=== PATIENT | female | born 1960 | race African-American/Black ===

== ENCOUNTER 2017-11-17 20:00 | Emergency (ER) | payer SELFPAY ==
[2017-11-17] MEDS ORDERED: predniSONE 20 MG TAB ONE (21:22)
[2017-11-17] MEDS ORDERED: predniSONE 10 MG TAB ONE (21:22)
[2017-11-17] MEDS ORDERED: FAMOTIDINE 20 MG TAB ONE (21:23)
--- NOTE | 2017-11-17 21:57 | ER ---
Nurse's Notes [facility] Name: Christel Cai Age: 56 yrs Sex: Female : 1960 Arrival Date: 11/17/2017 Time: 20:26 Bed 26 Private MD: Diagnosis: Unspecified adverse effect of drug or medicament Presentation: 11/17 20:26 Presenting complaint: EMS states: patient called complaining she was having a reaction kr2 to her new anxiety medication. Complains that her lip was swelling and mouth became very dry. She became very anxious and attempted to get out of the ambulance while it was in motion. She said she is afraid to be alone. Transition of care: patient was not received from another setting of care. Onset of symptoms was November 17, 2017. Risk Assessment: Do you want to hurt yourself or someone else? Patient reports no desire to harm self or others. Initial Sepsis Screen: Does the patient meet any 2 criteria? No. Patient's initial sepsis screen is negative. Does the patient have a suspected source of infection? No. Patient's initial sepsis screen is negative. Care prior to arrival: None. 20:26 Method Of Arrival: EMS: [facility] kr2 20:26 Acuity: TANNER 3 kr2 20:31 Presenting complaint: Patient states: she has severe anxiety and does not want to be kr2 alone. She denies having any thoughts of harming herself or others. Triage Assessment: 20:32 General: Appears in no apparent distress. comfortable, well developed, well nourished, kr2 Behavior is anxious, restless. Pain: Denies pain. Historical: - Allergies: 20:35 No Known Allergies; kr2 - Home Meds: 20:35 Hydroxyzine Oral [Active]; kr2 - Immunization history:: Adult Immunizations unknown. - Social history:: Smoking status: Patient/guardian denies using tobacco. - Ebola Screening: : No symptoms or risks identified at this time. Screenin:32 Abuse screen: Denies threats or abuse. Denies injuries from another. Nutritional kr2 screening: No deficits noted. Tuberculosis screening: No symptoms or risk factors identified. Fall Risk No fall in past 12 months (0 pts). Assessment: 21:15 General: Appears in no apparent distress. uncomfortable, Behavior is anxious, restless. aj1 Pain: Denies pain. Neuro: Level of Consciousness is awake, alert, obeys commands, Oriented to person, place, time, situation. Cardiovascular: Patient's skin is warm and dry. Respiratory: Airway is patent Breath sounds are clear bilaterally. GI: No signs and/or symptoms were reported involving the gastrointestinal system. : No signs and/or symptoms were reported regarding the genitourinary system. EENT: Reports dry mouth. Derm: No signs and/or symptoms reported regarding the dermatologic system. Skin is normal, Denies itching, rash. Musculoskeletal: No signs and/or symptoms reported regarding the musculoskeletal system. Circulation, motion, and sensation intact. 22:05 Reassessment: Patient appears in no apparent distress at this time. Patient and/or kr2 family updated on plan of care and expected duration. Pain level reassessed. Patient is alert, oriented x 3, equal unlabored respirations, skin warm/dry/pink. Psych: 20:35 Interventions: Urine collected and sent for urine drug test. Suicide Risk Assessment: kr2 Sad Person Scale: Sex of patient: Female: Score 0 points. Age of patient: Score 0 point if patient falls outside of specified age parameters. Depression: Score 1 point if signs of depression are present. Previous Attempt: Score 0 point if patient has not previously attempted suicide. Substance Abuse: Score 0 point if patient does not abuse alcohol or drugs. Rational Thinking: Score 1 point if patient is lacking rational thinking. Social Support: Score 1 point if social support is lacking and/or unavailable. Organized Plan: Score 0 if patient did not have an organized plan in place. Relationship: Score 1 point if patient is , , , or for a single male Chronic Sickness: Score 0 point if patient does not have a chronic illness, debilitating, or severe disorder. Safety Checks: Pt denies substance abuse. Vital Signs: 20:37 BP 179 / 96; Pulse 88; Resp 18; Temp 99.4; Pulse Ox 99% on R/A; Pain 0/10; kr2 22:08 BP 153 / 88; Pulse 84; Resp 17; Pulse Ox 99% on R/A; kr2 ED Course: 20:26 Patient arrived in ED. kr2 20:31 Triage completed. kr2 20:33 Arm band placed on left wrist. kr2 20:37 Patient has correct armband on for positive identification. Bed in low position. Call kr2 light in reach. Side rails up X2. Pulse ox on. NIBP on. Sitter at bedside. Door closed. Warm blanket given. Head of bed elevated. 20:40 Oleg Velazco PA is PHCP. cp 20:40 Pool Nolasco MD is Attending Physician. cp 21:11 Edwige Roy, RN is Primary Nurse. aj1 21:15 No provider procedures requiring assistance completed. aj1 22:08 Patient did not have IV access during this emergency room visit. kr2 Administered Medications: 21:30 Drug: predniSONE 40 mg Route: PO; kr2 22:10 Follow up: Response: No adverse reaction kr2 21:30 Drug: predniSONE 10 mg Route: PO; kr2 22:09 Follow up: Response: No adverse reaction kr2 21:30 Drug: Pepcid 20 mg Route: PO; kr2 22:09 Follow up: Response: No adverse reaction kr2 21:30 Not Given (patient does not have a ride): Benadryl 50 mg PO once; if patient has ride kr2 Outcome: 21:56 Discharge ordered by . cp 22:05 Discharged to Unknown patient discharged to lobby to wait for a ride kr2 22:05 Condition: good 22:05 Discharge instructions given to patient, Instructed on discharge instructions, follow up and referral plans. medication usage, Demonstrated understanding of instructions, follow-up care, medications, Prescriptions given X 3. 22:10 Patient left the ED. kr2 Signatures: Edwige Roy, RN RN aj1 Oleg Velazco PA PA cp Valeria Bill RN RN kr2 Corrections: (The following items were deleted from the chart) :22 21:15 Respiratory: Airway is patent aj1 aj1 21:15 Derm: No signs and/or symptoms reported regarding the dermatologic system. Skin aj1 is normal, aj1
--- NOTE | 2017-11-17 21:57 | EDPHYS ---
Physician Documentation [facility] Name: Christel Cai Age: 56 yrs Sex: Female : 1960 Arrival Date: 11/17/2017 Time: 20:26 Bed 26 Private MD: ED Physician Pool Nolasco HPI: 11/17 21:10 This 56 yrs old Black Female presents to ER via EMS with complaints of lip swelling. cp 21:10 The patient presents with swelling of the lips. cp 21:10 Onset: The symptoms/episode began/occurred today. Associated signs and symptoms: cp Pertinent negatives: abdominal pain, chest pain, dysphagia, fever, hives, nausea, rash, shortness of breath, vomiting. Possible causes: hydroxyzine. At home the patient or guardian has treated the symptoms with nothing. Severity of symptoms: in the emergency department the symptoms are unchanged. Historical: - Allergies: 20:35 No Known Allergies; kr2 - Home Meds: 20:35 Hydroxyzine Oral [Active]; kr2 - Immunization history:: Adult Immunizations unknown. - Social history:: Smoking status: Patient/guardian denies using tobacco. - Ebola Screening: : No symptoms or risks identified at this time. ROS: 21:15 Constitutional: Negative for body aches, chills, fever, poor PO intake. cp 21:15 Eyes: Negative for injury, pain, redness, and discharge. cp 21:15 ENT: Positive for swelling upper lip, Negative for drainage from ear(s), ear pain, difficulty swallowing, difficulty handling secretions. 21:15 Neck: Negative for pain with movement, pain at rest, stiffness, swollen nodes, tenderness. 21:15 Cardiovascular: Negative for chest pain, edema, palpitations. 21:15 Respiratory: Negative for cough, shortness of breath, wheezing. 21:15 Abdomen/GI: Negative for abdominal pain, nausea, vomiting, and diarrhea. 21:15 Skin: Negative for cellulitis, diaphoresis, rash. 21:15 Neuro: Negative for altered mental status, dizziness, headache. 21:15 All other systems are negative. Exam: 21:20 Constitutional: The patient appears in no acute distress, alert, awake, comfortable, cp non-diaphoretic, non-toxic, well developed, well nourished. 21:20 Head/Face: Normocephalic, atraumatic. cp 21:20 Eyes: Periorbital structures: appear normal, Pupils: equal, round, and reactive to light and accomodation, Extraocular movements: intact throughout, Conjunctiva: normal, no exudate, no injection, Sclera: no appreciated abnormality, Lids and lashes: appear normal, bilaterally. 21:20 ENT: External ear(s): are unremarkable, Ear canal(s): are normal, clear, TM's: bulging, is not appreciated, bilaterally, dullness, bilaterally, erythema, is not appreciated, bilaterally, Nose: is normal, Mouth: is normal, Posterior pharynx: is normal, airway is patent, no erythema, no exudate, Voice: is normal. 21:20 Neck: C-spine: vertebral tenderness, is not appreciated, crepitus, is not appreciated, ROM/movement: pain, is not appreciated, limited range of motion, is not appreciated, nuchal rigidity, is not appreciated. 21:20 Chest/axilla: Inspection: normal, Palpation: is normal, no crepitus, no tenderness. 21:20 Cardiovascular: Rate: normal, Rhythm: regular, Pulses: Pulses are 2+ in right radial artery and left radial artery. Heart sounds: murmur, not appreciated, Edema: is not appreciated, JVD: is not appreciated. 21:20 Respiratory: the patient does not display signs of respiratory distress, Respirations: normal, no use of accessory muscles, no retractions, no splinting, no tachypnea, labored breathing, is not present, Breath sounds: are clear throughout, no decreased breath sounds, no stridor, no wheezing. 21:20 Abdomen/GI: Inspection: abdomen appears normal, Bowel sounds: active, all quadrants, Palpation: abdomen is soft and non-tender, in all quadrants, rebound tenderness, is not appreciated, voluntary guarding, is not appreciated, involuntary guarding, is not appreciated. 21:20 Back: pain, is absent, ROM is normal, vertebral tenderness, is not appreciated. 21:20 Musculoskeletal/extremity: Exam is negative for bony tenderness, decreased range of motion, deformity, edema, injury. 21:20 Skin: cellulitis, is not appreciated, no rash present. 21:20 Neuro: Orientation: to person, place \T\ time. Mentation: lucid, able to follow commands, Cerebellar function: is grossly normal, Motor: moves all fours, strength is normal, Sensation: no obvious gross deficits, Gait: is steady. Vital Signs: 20:37 BP 179 / 96; Pulse 88; Resp 18; Temp 99.4; Pulse Ox 99% on R/A; Pain 0/10; kr2 22:08 BP 153 / 88; Pulse 84; Resp 17; Pulse Ox 99% on R/A; kr2 MDM: 20:42 Patient medically screened. cp 21:10 Differential diagnosis: anaphylaxis, angioedema, urticaria. cp 21:55 Data reviewed: vital signs, nurses notes, and as a result, I will discharge patient. cp 21:55 ED course: VSS. No signs of respiratory distress noted. Minimal swelling noted on exam. cp Will discharge to home for continued monitroing. Administered Medications: 21:30 Drug: predniSONE 40 mg Route: PO; kr2 22:10 Follow up: Response: No adverse reaction kr2 21:30 Drug: predniSONE 10 mg Route: PO; kr2 22:09 Follow up: Response: No adverse reaction kr2 21:30 Drug: Pepcid 20 mg Route: PO; kr2 22:09 Follow up: Response: No adverse reaction kr2 21:30 Not Given (patient does not have a ride): Benadryl 50 mg PO once; if patient has ride kr2 Disposition: 11/17/17 21:56 Discharged to Home. Impression: Unspecified adverse effect of drug or medicament. - Condition is Stable. - Prescriptions for Pepcid 20 mg Oral Tablet - take 1 tablet by ORAL route every 12 hours for 5 days; 10 tablet. Prednisone 20 mg Oral Tablet - take 2 tablet by ORAL route once daily for 5 days; 10 tablet. Miralax 17 gram/dose Oral - take 1 packet by ORAL route once daily dilute powder in 8 ounces of water or juice; 15 packet. - Medication Reconciliation Form, Thank You Letter, Antibiotic Education, Prescription Opioid Use form. - Follow up: Private Physician; When: 1 - 2 days; Reason: Recheck today's complaints. - Problem is new. - Symptoms have improved. Addendum: 11/20/2017 10:17 Co-signature as Attending Physician, Pool Nolasco MD I agree with the assessment and w a plan of care. Signatures: Page, Oleg, Pool Diaz cp, MD MD wa Reaves, Karey, RN RN kr2 Corrections: (The following items were deleted from the chart) 11/17 22:10 21:56 11/17/2017 21:56 Discharged to Home. Impression: Unspecified adverse effect of kr2 drug or medicament. Condition is Stable. Forms are Medication Reconciliation Form, Thank You Letter, Antibiotic Education, Prescription Opioid Use. Follow up: Private Physician; When: 1 - 2 days; Reason: Recheck today's complaints. Problem is new. Symptoms have improved. cp
== END 2017-11-17 22:10 | disposition home or self-care (01) ==
LOC: ER 20:00
DX: R22.0 Localized swelling, mass and lump, head (principal); R60.0 Localized edema; T50.905A Adverse effect of unspecified drugs, medicaments and biological substances, initial encounter; Y92.019 Unspecified place in single-family (private) house as the place of occurrence of the external cause
CPT/HCPCS: 99284; J7512